=== PATIENT | male | born 1940 | race Caucasian/White ===

== ENCOUNTER → 2016-04-28 | Day surgery (SDC) | payer OTHER ==
[2015-12-24 22:58] VITALS: BMI 28.6
[~2016-04-28] MED LIST: CEFAZOLIN 1 GM VIAL ONE; FENTANYL 100 MCG/2 ML VIAL IV ONE; FENTANYL 100 MCG/2 ML VIAL IV PRN; HYDROmorphone 1 MG INJECTION IV PRN; LABETALOL 20 MG/4 ML SYRINGE IV PRN; LIDOCAINE 4% 5 ML AMPULE NEB ONE; MEPERIDINE 25 MG/ML TUBEX IV PRN; MIDAZOLAM 2 MG/2 ML VIAL IV ONE; ONDANSETRON HCL 4 MG ODT TAB PO PRN; ONDANSETRON HCL 4 MG/2 ML VIAL IV ONE; ONDANSETRON HCL 4 MG/2 ML VIAL IV PRN; PROPOFOL 200 MG/20 ML VIAL IV ONE; hydrALAZINE 20 MG/ML VIAL IV PRN
[2016-04-28 10:28] LABS: AUTOMATED BASOPHIL 0.4 % (0-2); AUTOMATED EOSINOPHIL 7.4 % (0-5); AUTOMATED LYMPH 14.3 % (17-44); AUTOMATED MONOCYTE 9.2 % (3-10); AUTOMATED NEUTROPHIL 68.7 % (45-76); MPV 7.6 fL (7.4-10.4)
[2016-04-28 10:50] LABS: BLOOD UREA NITROGEN 32 MG/DL (9-20); CALC CORRECTED 9.6 MG/DL (8.4-10.2); CALCIUM 9.3 MG/DL (8.4-10.2); CALCULATED OSMOLALITY 286 MOs/Kg (270-290); CHLORIDE 112 mEq/L (98-107); GLUCOSE 99 mg/dL (70-99); SODIUM LEVEL 145 mEq/L (137-146)
--- NOTE | 2016-04-28 11:13 | HIM.ANES ---
Anesthesia Evaluation & Plan Diagnoses: BLADDER-NECK OBSTRUCTION (04/28/16) - Focused Review of Systems Cardiac History: Yes: Hx Hypertension, Hx Heart Attack (2009), Hx Cardiac Catheterization (2008, 2009), Hx Coronary Stent (2008), Hx Cardiac Disorders, Hx Abnormal Cholesterol/Hyperlipidemia, Hx Coronary Artery Bypass Graft (2009) HEENT: Yes: Hx Deviated Septum, Hx Vision Problem (GLASSES FOR DRIVING), Other HEENT Problems Hx Other HEENT Surgery: SQUAMOUS CELL CA EXCISION LEFT TEMPORAL AND EAR Hx Other HEENT Problems: ALLERGIC RHINNITIS Respiratory: Yes: Hx Asthma, Hx Chronic Obstructive Pulmonary Disease (COPD) Gastrointestinal: Yes: Hx Gastroesophageal Reflux Disease, Hx Gastrointestinal Disorders, Hx Colonoscopy (POLYPECTOMY ) Neurological/Musculoskeletal: No: Hx Neurological Disorders Psychological: No Hx Depression, No Hx Mental/Emotional Disorders Endocrine: Yes: Hx Non-Insulin Dependent Diabetes Blood/Autoimmune: No: Hx AIDS, Hx Hepatitis (type) Smoking Status: Former smoker Hx Stress Test (date): Yes (11/26/2015) Surgical History: Yes: CABG (2009), Knee (LEFT KNEE SCOPE 1994) Other Surgical History: SQUAMOUS CELL CA EXCISION LEFT TEMPORAL AND EAR CYSTOSCOPY - Focused Physical Exam NPO since: after Midnight Mallampati: Class II Dental: Removable Dental Work Cardiovascular/Chest: Normal Respiratory: Lungs clear Any problems with anesthesia, including nausea and vomiting?: No Any relatives with a history of Malignant Hyperthermia?: No Other: Problem List Problem Status Onset COPD (chronic obstructive pulmonary disease) Acute Cacinoma of the prostate Acute Diabetes 1.5, managed as type 2 Acute Hypertension associated with diabetes Acute CBC/BMP/Other 04/28/16 10:24 04/28/16 10:24 Allergies Allergy/AdvReac Type Severity Reaction Status Date / Time No Known Allergies Allergy Verified 12/24/15 22:55 Home Medications Medication Instructions Recorded Last Taken Type Alendronate Sodium [Fosamax] 70 mg PO WEEKLY 12/08/15 12/14/15 08:00 History Lisinopril [Prinivil] 5 mg PO DAILY 12/08/15 12/21/15 08:06 History Montelukast Sodium [Singulair] 10 mg PO DAILY 12/08/15 12/21/15 08:06 History Pantoprazole Sodium [Protonix] 40 mg PO DAILY 12/08/15 12/21/15 05:36 History Acetaminophen Ex Str Tablet 1,000 mg PO TID PRN 12/15/15 12/16/15 16:00 History [TYLENOL EXTRA STRENGTH Tablet] Albuterol Sulfate [Proair Hfa] 2 puff INH Q4-6H PRN 12/15/15 12/16/15 16:00 History Febuxostat [Uloric] 80 mg PO DAILY 12/15/15 12/16/15 16:00 History Fexofenadine HCl [Anu] 180 mg PO DAILY 12/15/15 12/21/15 08:05 History Fluticasone Propionate [Flonase] 1 - 2 spray NILDA DAILY PRN 12/15/15 Unknown History Fluticasone/Salmeterol [Advair 1 inh INH BID 12/15/15 12/21/15 07:16 History 250-50] Glipizide 10 mg PO BID 12/15/15 12/21/15 05:35 History Glucosamine HCl/Vitamin D3 1 each PO BID 12/15/15 12/17/15 04:30 History [Glucosamine Plus Vitamin D Tab] Hydrocodone Bit/Acetaminophen 1 tab PO Q4H PRN 12/15/15 12/21/15 11:53 History [Hydrocodon-Acetaminophen 5-325] Multivitamin [One Daily 1 each PO DAILY 12/15/15 12/16/15 08:00 History Multivitamin] Saxagliptin HCl [Onglyza] 5 mg PO DAILY 12/15/15 12/16/15 08:00 History Sodium Chloride [Saline Nasal 30 ml NS DAILY PRN 12/15/15 12/16/15 08:00 History [place]] Tiotropium [place] [Spiriva] 18 mcg INH DAILY 12/15/15 12/17/15 04:30 History Ubidecarenone [Co Q-10] 100 mg PO DAILY 12/15/15 12/16/15 18:00 History Ca/D3/Mag#11/Zinc/Res Habilitation Assistant/Pop/Bor 1 tab PO BID 12/17/15 12/16/15 History [Caltrate Plus Tablet] Digoxin [Lanoxin, Digitek] 0.125 mg PO DAILY 12/17/15 12/21/15 08:06 History Rosuvastatin Calcium [Crestor] 2.5 mg PO QHS 12/17/15 12/21/15 08:05 History Levofloxacin [Levaquin] 500 mg PO DAILY 12/21/15 Unknown History Oxycodone Immediate Release 5 mg PO Q4H PRN 12/21/15 12/21/15 11:53 History [Oxycodone Immediate Release (OxyIR)] Cephalexin Monohydrate [Keflex] 500 mg PO Q6H #20 cap 12/25/15 Unknown Rx Height and Weight Patient's height 5 ft 7 in Patient's weight 83.007 kg BMI 28.6 - Anesthetic Plan Anesthesia Type: General ASA Class: 3 -: I have examined this patient and reviewed the medical record. The patient has been assessed prior to anesthesia. Risks and benefits of anesthesia and anesthetic technique options have been discussed and all questions answered. The patient accepts the risk and desires me to proceed with the planned anesthetic.
--- NOTE | 2016-04-28 13:29 | HIMOPRPT ---
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 POSTOPERATIVE DIAGNOSIS: [Same]. PROCEDURE PERFORMED: [] dilatation of the sub meatal stricture and incision and dilatation of the bladder neck using urethra tome.. ANESTHESIA: [general by laryngeal mask. ANESTHESIOLOGIST: Dr. Cid] SURGEON: Alexey Lucio MD LINE PATROLMAN: []. PROCEDURE IN DETAIL: []. Patient brought to operative room placed in supine position. General anesthesia by laryngeal mask was given once adequate level of anesthesia was obtained patient was placed in lithotomy position. Genitalia were prepped and draped in usual sterile manner. The sub meatal stricture was dilated with the [place] sounds up to size 26 [place] without any difficulty. Subsequently a 20 [place] urethrotome was inserted under direct vision the bladder neck was visualized which was about 1-2 mm size. Under diet which in the knife of the urethra tome was inserted into the bladder neck and incisions were made at 12 o'clock 1 o'clock 3 o'clock none o'clock and 11 o'clock I was able to push the 20 size urethra tome into the bladder and bladder interior was found to be quite normal. Down subsequently with Ilir sounds the bladder neck was further dilated up to size 28 [place] without any difficulty. 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 The discharge medications Levaquin 500 mg daily. Patient has this medication at home. He will also be given Vicodin 1 to be taken Q 6 hours p.r.n. for pain.
[2016-04-28 13:52] VITALS: TEMP 98.2
[2016-04-28 15:04] VITALS: PULSE 78
--- NOTE | 2016-04-28 15:47 | SC.ANESPOS ---
Post-Anesthesia Note LOC: Fully Awake Post-Anesthesia Assessment: Awake, Returned to Baseline, Hemodynamically Stable , Pain Control Adequate Phase I & II Recovery Complete: Yes Apparent Anesthesia Complication: No : N PACU Discharge Time: 14:00 - Vital Signs Blood Pressure: 118/71 Pulse: 78 Resp Rate: 16 O2 Sat: 98 Temp: 98.2 F - Comments Anesthesia Discharge Time Report Time 14:00
[2016-04-28 15:48] VITALS: BP 118/71
== END ==
LOC: SDC 09:48
PROVIDERS: ATTEND Urology
PROC: 0T7D8ZZ Dilation of Urethra, Via Natural or Artificial Opening Endoscopic (ICD-10-PCS; 2016-04-28)
PROC: 0T7C8ZZ Dilation of Bladder Neck, Via Natural or Artificial Opening Endoscopic (ICD-10-PCS; principal; 2016-04-28 11:15)
DX: N32.0 Bladder-neck obstruction (principal); I10 Essential (primary) hypertension; I25.2 Old myocardial infarction; E78.5 Hyperlipidemia, unspecified; J44.9 Chronic obstructive pulmonary disease, unspecified; J45.909 Unspecified asthma, uncomplicated; K21.9 Gastro-esophageal reflux disease without esophagitis; E11.9 Type 2 diabetes mellitus without complications; Z79.84 Long term (current) use of oral hypoglycemic drugs; Z79.899 Other long term (current) drug therapy; Z95.1 Presence of aortocoronary bypass graft; Z87.891 Personal history of nicotine dependence
CPT/HCPCS: 52276; 80053; 82962; 85025; J0690; J2405; J2550; J3010; J3490; J2250